=== PATIENT | female | born 1995 | race Caucasian/White ===

== ENCOUNTER 2016-06-15 12:29 | Day surgery (SDC) | payer BC ==
[2016-06-15] MEDS ORDERED: Famotidine IV* 10 MG/ML 2 ML (20 mg) ONE (13:56)
[2016-06-15] MEDS ORDERED: ceFAZolin 2 GM PREMIX (*) 2 GM/50 ML BAG IVPB ONE (13:56)
[2016-06-15] MEDS ORDERED: Lidocaine 2% PF * 5 ML VIAL ONE (15:35)
[2016-06-15] MEDS ORDERED: Midazolam* 1 MG/ML 5 ML VIAL (5 MG) ONE (15:35)
[2016-06-15] MEDS ORDERED: Dexamethasone IV* 4 MG/ML 1 ML (4 MG) ONE (15:35)
[2016-06-15] MEDS ORDERED: Ondansetron INJ* 2 MG/ML VIAL ONE (15:35)
[2016-06-15] MEDS ORDERED: Propofol* 10 MG/ML 20 ML BTL IV PUSH ONE (15:35)
[2016-06-15] MEDS ORDERED: Ketorolac INJ* 30 MG/ML 1 ML VIAL ONE (15:35)
[2016-06-15] MEDS ORDERED: fentaNYL* 50 MCG/ML 2 ML VIAL (100 MCG VIAL) ONE ×2 (15:35→17:07)
[2016-06-15] MEDS ORDERED: DiMENhydriNATE IV* 50 MG/ML VIAL ONE (15:35)
[2016-06-15] MEDS ORDERED: Bupivacaine 0.25% EPI 200,000* 30 ML SDV ONE (16:14)
[2016-06-15] MEDS ORDERED: Bupivacaine 0.25% SDV* 30 ML ONE (16:14)
[2016-06-15] MEDS ORDERED: oxyCODONE/Acetamin 5/325 MG* TAB ONE (18:04)
== END 2016-06-15 18:34 | disposition home or self-care (01) ==
LOC: OREAST 12:29
PROVIDERS: ATTEND Orthopaedic Surgery
DX: M93.261 Osteochondritis dissecans, right knee (principal); M22.2X1 Patellofemoral disorders, right knee; Z87.891 Personal history of nicotine dependence
CPT/HCPCS: 88304; A9270-GY; C1713; C1776; J0690; J1100; J1240; J1885; J2250; J2405; J2704; J3010

== ENCOUNTER 2016-12-18 11:27 | Day surgery (SDC) | payer BC ==
[~2016-12-18 11:27] MED LIST: Buffered Lidocaine 0.9% SYRIN* 5 ML/SYR SYRINGE INTRADERM ONE; Sodium Citrate/Citric Acid* 15 ML UDC ONE; Sodium Citrate/Citric Acid* 15 ML UDC PO ONE; celeCOXIB CAP* 100 MG ONE; celeCOXIB CAP* 200 MG PO ONE
[2016-12-18] MEDS ORDERED: ceFAZolin 2 GM PREMIX (*) 50 ML IVPB ONE (11:42)
[2016-12-18] MEDS ORDERED: DiMENhydriNATE IV* 50 MG/ML VIAL IV PUSH PRN (12:26)
[2016-12-18] MEDS ORDERED: oxyCODONE/Acetamin 5/325 MG* TAB PO PRN (12:26)
[2016-12-18] MEDS ORDERED: fentaNYL* 50 MCG/ML 2 ML VIAL (100 MCG VIAL) IV PRN (12:26)
[2016-12-18] MEDS ORDERED: Bupivacaine 0.25% SDV* 30 ML ONE (12:52)
[2016-12-18] MEDS ORDERED: fentaNYL* 50 MCG/ML 2 ML VIAL (100 MCG VIAL) ONE ×2 (13:01→14:10)
[2016-12-18] MEDS ORDERED: Propofol* 10 MG/ML 20 ML BTL IV PUSH ONE (13:04)
[2016-12-18] MEDS ORDERED: Lidocaine 2% PF * 5 ML VIAL ONE (13:04)
[2016-12-18] MEDS ORDERED: oxyCODONE/Acetamin 5/325 MG* TAB ONE (15:02)
[2016-12-18 15:04] VITALS: BP 118/72
--- NOTE | 2016-12-20 18:50 | OP ---
OPERATIVE REPORT: DATE OF SURGERY: 12/18/16 DATE OF : 89 ATTENDING SURGEON: Anni Orantes MD SPINDLE CARVER: CLAUDIA Noel An news production assistant was needed for the entirety of the case to help with positioning, retraction, and was utilized throughout all portions. ANESTHESIOLOGIST: Dr. Graham. ANESTHESIA: General. 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 OPERATIVE PROCEDURE: Right knee arthroscopy with chondroplasty as well as removal of Acutrak screw x1. COMPLICATIONS: None. ESTIMATED BLOOD LOSS: Minimal. TOURNIQUET TIME: Zero minutes. INDICATIONS: Flor Larsen is a 21-year-old female, who underwent arthroscopy with ORIF of her medial femoral condyle OCD lesion on June 15. She was doing well and talked about screw removal around 2 to 3 months postop, but she was unable to do that sooner. Therefore, after the discussion of risks and benefits, she has elected to proceed with removal of hardware. We did discuss concerns that it may or may not be fully healed, it may be irritating other tissues, and we talked about how if it is, it may need to be treated again with a different type of screw versus debrided and removed. After extensive discussion of risks and benefits of operative versus nonoperative procedure, she has elected to proceed with operative procedure. Risks include but are not limited to bleeding, infection, damage to nerves, vessels or surrounding structures, wound not healing, persistent pain, need for further surgery, scarring, stiffness, incomplete relief of symptoms, risk of DVT, risk of anesthesia. OPERATIVE FINDINGS: She had grade 0 changes all around her knee except for the medial compartment. There were grade 2 changes around the edge of the defect and grade 2 in the kissing tibial defect. The screw, which was previously deep to the cartilage level was more prominent when we started to abrade the tibia. Once the screw was removed, the OCD was found to be well fixed and therefore, no further treatment had to be done. DESCRIPTION OF PROCEDURE: The patient was greeted in the preoperative area by the attending surgeon. The correct extremity was marked and consent was confirmed. The patient was then brought back to the operating suite where she was placed in supine position on the operating table. She then underwent general anesthesia with endotracheal intubation, which she tolerated without difficulty, after which the knee was examined. There was a mild effusion that was apparent but full range of motion and a well-healed incision. An unsterile tourniquet was placed high on the proximal thigh. Lateral post was positioned. The right leg was prepped and draped in the usual sterile fashion beginning with chlorhexidine soap scrub and alcohol wipe and a final prep with ChloraPrep. After appropriate surgical pause indicating site and side of procedure, administration of antibiotics, the knee was intra-articularly injected with sterile saline. The lateral portals were made with an 11 blade. The scope was introduced into the joint. The joint was examined. There were grade 0 to 1 changes of the patellofemoral joint. Medial and lateral gutters were intact. The scope was brought into the medial compartment. The anteromedial portal was made in an outside-in fashion in line with the previous incision. The probe was brought in to assess the meniscus, which was intact. The screw was identified and was found to be slightly more prominent and we started to mildly abrade the tibial cartilage surface, but it was still grade 1 to 2 changes. The shaver was used to do a small chondroplasty of the edges of the medial femoral condyle lesion as well as the tibial lesion and the tibial surface. The ACL and PCL were intact. The lateral compartment was examined and the meniscus was intact. The lateral femoral condyle and lateral tibial plateau had grade 0 changes. At this point, the previous incision was made again. Care was taken to preserve layers for later closure. The capsule was identified and then sharply incised. The soft tissues were carefully dissected to expose the medial femoral condyle. The knee was then hyperflexed with gentle retraction. The appropriate size K-wire was placed into the cannulated screw. To find the trajectory, the screw was then removed in its entirety. At this point, a gentle probing of the lesion was done and it was found to be well fixed. The scope was moved back to the joint and again examined and then was gently probed again and found to be completely intact. At this point, no further fixation was done because the lesion was stable. The wound was copiously irrigated. The knee was thoroughly lavaged with sterile saline. The open wound was closed in layers with 0 Vicryl, then 2-0 Vicryl and tung. The lateral portal was then closed at the end after the scope was repositioned again to make sure once more that the lesion was not destabilized, and the portal was closed with 3-0 nylon. Sterile dressings were applied. The knee was intra-articularly injected with 0.25% Marcaine plain. Sterile dressings were applied. She was awoken from anesthesia, transferred to PACU in stable condition. POSTOPERATIVE PLAN: She will be nonweightbearing until she sees me back in clinic. She will be allowed to work on range of motion. DVT prophylaxis considered. She will be placed on aspirin. She will be discharged on pain medications and antibiotics. I will see the patient back in 10 to 14 days. [id number]/[facility] #: [id number] MTDD
== END 2016-12-18 15:20 | disposition home or self-care (01) ==
LOC: OREAST 11:27
PROVIDERS: ATTEND Orthopaedic Surgery
DX: Z47.2 Encounter for removal of internal fixation device (principal); M89.8X6 Other specified disorders of bone, lower leg; Z87.891 Personal history of nicotine dependence
CPT/HCPCS: 81025; 88300; A9270-GY; C1776; J0690; J2704; J3010